=== PATIENT | female | born 1975 | race Caucasian/White ===

== ENCOUNTER 2019-05-06 05:36 | Day surgery (SDC) | payer OTHER ==
[~2019-05-06 05:36] MED LIST: Buffered Lidocaine 1% SYRIN* 1 ML/SYRINGE INTRADERM ONE
[2019-05-06] MEDS ORDERED: Lactated Ringers 1000 ML Bag* 1,000 ML IV SCH (06:00)
[2019-05-06] MEDS ORDERED: ceFAZolin 2 GM in NS PREMIX(*) 2 GM/100 ML BAG IVPB ONE (06:36)
[2019-05-06] MEDS ORDERED: Midazolam* 1 MG/ML 2 ML VIAL (2 MG) ONE (07:30)
[2019-05-06] MEDS ORDERED: Remifentanil* 2 MG VIAL ONE (07:30)
[2019-05-06] MEDS ORDERED: Propofol* 10 MG/ML 20 ML BTL ONE (07:30)
[2019-05-06] MEDS ORDERED: Propofol* 500 MG/50 ML BTL ONE (07:30)
[2019-05-06] MEDS ORDERED: Lidocaine 2% PF * 5 ML VIAL ONE ×2 (07:30→07:31)
[2019-05-06] MEDS ORDERED: Bupivacaine 0.5%* 50 ML MDV VIAL ONE (07:49)
[2019-05-06] MEDS ORDERED: Acetaminophen TAB* 325 MG PO PRN (08:43)
[2019-05-06] MEDS ORDERED: oxyCODONE TAB* 5 MG TAB PO PRN (08:43)
[2019-05-06] MEDS ORDERED: DiMENhydriNATE IV* 50 MG/ML VIAL IV PUSH PRN (08:43)
[2019-05-06] MEDS ORDERED: Naloxone* 0.4 MG/ML 1 ML VIAL IV PRN (08:43)
[2019-05-06] MEDS ORDERED: fentaNYL* 50 MCG/ML 2 ML VIAL (100 MCG VIAL) IV PRN (08:43)
[2019-05-06] MEDS ORDERED: Ketorolac INJ* 30 MG/ML 1 ML VIAL ONE (08:49)
[2019-05-06] MEDS ORDERED: Metoclopramide IV* 5 MG/ML 2 ML VIAL ONE (08:49)
[2019-05-06] MEDS ORDERED: Ondansetron INJ* 2 MG/ML VIAL ONE (08:49)
[2019-05-06] MEDS ORDERED: Dexamethasone IV* 4 MG/ML 1 ML (4 MG) ONE (08:49)
--- NOTE | 2019-05-06 09:03 | OP ---
Operative Report - Blank - Operative Report Date of Operation: 05/06/19 Note: PATIENT: Summer Thomas DATE OF : 1975 DATE OF SURGERY: 05/06/2019 SURGEON: Manuel Yarbrough MD [employer] MANAGER: DAHIANA Branch, whos assistance was necessary for positioning, retraction, help with instrumentation, and closure. ANESTHESIOLOGIST: Dr. To PREOPERATIVE DIAGNOSIS: Right foot hallux valgus deformity POSTOPERATIVE DIAGNOSIS: Right foot hallux valgus deformity OPERATION: Right foot hallux valgus correction with distal soft tissue procedure , medial eminence resection, and proximal suture button fixation. ANESTHESIA: General IMPLANTS: Arthrex mini tightrope TOURNIQUET TIME: Less than one hour with a well-padded thigh tourniquet at 250mmHg SPECIMENS: None ESTIMATED BLOOD LOSS: Minimal COMPLICATIONS: none STATUS: Stable from the operating room to the recovery room and then home. INDICATIONS FOR PROCEDURE: Summer has had persistent pain from her bunion. Both operative and non- operative treatment alternatives were reviewed. Further, the nature and risks of surgery were reviewed in careful detail, in the office as well as the pre- operative holding area. Our discussions regarding the risks of surgery included , but were not limited to, infection, wound problems, nerve injury, neuroma, RSD , persistent symptoms, blood clot, recurrence of the hallux valgus deformity, hallux varus deformity, imperfect reduction, metatarsal fracture, need for further surgery, failure of the surgery, and even the remote chance of catastrophic complication, including loss of limb. DESCRIPTION OF PROCEDURE: The patient was seen in the preoperative holding unit and informed written consent was obtained. The appropriate extremity was marked. The patient was then brought to the operating room and carefully positioned on the operating room table. Anesthesia was induced. All bony prominences were padded with great care. A chlorhexidine based pre-scrub was performed followed by a chloraprep prep and drape in standard sterile fashion. A surgical safety pause was then conducted in which we confirmed the appropriate patient, extremity, planned procedure, availability of equipment, indication and administration of prophylactic antibiotics, and DVT prophylaxis in the form of a compression boot on the non-surgical extremity. I began with Esmarch exsanguination of the limb and inflated the tourniquet. An approximately 3cm longitudinal dorsal incision was made in the first webspace. Blunt dissection was utilized to expose the structures of the lateral first MTP joint. With a scalpel I then sharply released the adductor tendon, intermetatarsal ligament, metatarsal-sesamoid ligament, and lateral joint capsule. After this, the hallux came readily over into varus with minimal pressure. I then made an approximately 3cm longitudinal incision over the medial aspect of the first MTP joint, centered at the first MTP joint. Dissection was carried down to the capsular layer. The dorsomedial cutaneous nerve was protected throughout. The capsule was opened in line with the skin incision. I then used an oscillating saw to perform an exostectomy of the medial eminence of the first MTP head flush with the metaphyseal flare proximally. I started the osteotomy 1mm medial to the sagittal sulcus. The dorsomedial prominence was then contoured with a rongeur. I then simulated an imbrication of the capsule, which provided excellent visual correction of the hallux valgus deformity and intermetatarsal angle. I used fluoroscopy to confirm this and that the sesamoids were appropriately positioned under the first metatarsal head. As such, I then formally imbricated and repaired the medial first MTP joint capsule utilizing several advancing horizontal mattress sutures with #1 Vicryl. I then made an approximately 1 cm incision at the lateral border of the second metatarsal. The lateral cortex of the second metatarsal was exposed. The 1.1mm guidewire from the Arthrex mini tightrope set was passed from the lateral second metatarsal, through the second metatarsal, and through the first metatarsal to exit medially. I felt four cortices while advancing the guidewire. Then, by pulling the guidewire out medially, I shuttled a passing suture through the second and first metatarsals. I then looped the suture of the Arthrex mini tightrope through the passing suture and pulled this out laterally through the second metatarsal. This acted to shuttle the mini tightrope through the first and second metatarsals. The buttons were placed flush on the medial aspect of the first metatarsal and lateral aspect of the second metatarsal, and the suture was tied over the button laterally at the second metatarsal. Fluoroscopy was used to confirm that this maintained my intermetatarsal correction. Final fluoroscopic images were then obtained. The wounds were copiously irrigated and meticulously closed in layers utilizing 3-0 Monocryl and 3-0 nylon. A sterile dressing was then applied, along with a bunion bolster. The patient was then awakened from anesthesia and transferred to the recovery room in stable condition. There were no complications. All needle and sponge counts were correct at the end of the case. ATTESTATION: I attest I was present and scrubbed and performed the critical portions of the procedure myself. POSTOPERATIVE PLAN: The patient will remain heel weightbearing in a postop shoe for anticipated duration of 6 weeks. Followup will be in 2 weeks for likely suture removal, Steri-Strip application, and reapplication of the bunion bolster.
[2019-05-06] MEDS ORDERED: oxyCODONE TAB* 5 MG TAB ONE (10:37)
[2019-05-06 11:35] VITALS: BP 126/81
== END 2019-05-06 11:36 | disposition home or self-care (01) ==
LOC: OR 05:36
PROVIDERS: ATTEND Orthopaedic Surgery
DX: M20.11 Hallux valgus (acquired), right foot (principal); Z87.891 Personal history of nicotine dependence; Z85.43 Personal history of malignant neoplasm of ovary; K21.9 Gastro-esophageal reflux disease without esophagitis; Z87.442 Personal history of urinary calculi
CPT/HCPCS: 76000; A9270-GY; C1713; J0690; J1100; J1885; J2250; J2405; J2704; J2765; J3490

== ENCOUNTER 2019-08-21 09:09 | Day surgery (SDC) | payer OTHER ==
[~2019-08-21 09:09] MED LIST changes: +Lactated Ringers 1000 ML Bag* 1,000 ML IV SCH
[2019-08-21] MEDS ORDERED: ceFAZolin 2 GM PREMIX in ORs 2 GM/50 ML BAG ONE (09:32)
[2019-08-21] MEDS ORDERED: Bupivacaine 0.5%* 50 ML MDV VIAL ONE (11:38)
[2019-08-21] MEDS ORDERED: fentaNYL* 50 MCG/ML 2 ML VIAL (100 MCG VIAL) ONE (12:24)
[2019-08-21] MEDS ORDERED: Midazolam* 1 MG/ML 2 ML VIAL (2 MG) ONE (12:25)
[2019-08-21] MEDS ORDERED: Lidocaine 2% PF * 5 ML VIAL ONE (13:17)
[2019-08-21] MEDS ORDERED: Dexamethasone IV* 4 MG/ML 1 ML (4 MG) ONE (13:17)
[2019-08-21] MEDS ORDERED: Ondansetron INJ* 2 MG/ML VIAL ONE (13:17)
[2019-08-21] MEDS ORDERED: Propofol* 10 MG/ML 20 ML BTL ONE (13:17)
[2019-08-21] MEDS ORDERED: oxyCODONE TAB* 5 MG TAB ONE (13:52)
[2019-08-21 14:45] VITALS: BP 105/59
--- NOTE | 2019-08-21 15:25 | OP ---
Operative Report - Blank - Operative Report Date of Operation: 08/21/19 Note: PATIENT: Summer Thomas DATE OF : 1975 DATE OF SURGERY: 08/21/2019 SURGEON: Manuel Yarbrough MD REPAIR SERVICER: DAHIANA Branch, whos assistance was necessary for positioning, retraction, help with instrumentation, and closure. ANESTHESIOLOGIST: Dr. Gee PREOPERATIVE DIAGNOSIS: Left foot hallux valgus deformity POSTOPERATIVE DIAGNOSIS: Left foot hallux valgus deformity OPERATION: Left foot hallux valgus correction with distal soft tissue procedure , medial eminence resection, and proximal suture button fixation. ANESTHESIA: General IMPLANTS: Arthrex mini tightrope TOURNIQUET TIME: Less than one hour with a well-padded thigh tourniquet at 250 mmHg. SPECIMENS: None ESTIMATED BLOOD LOSS: Minimal COMPLICATIONS: none STATUS: Stable from the operating room to the recovery room and then home. INDICATIONS FOR PROCEDURE: Summer has a painful left bunion deformity. She had a prior right bunion correction and did well with this, and elected to move forward with the same surgery on the left side. Both operative and non-operative treatment alternatives were reviewed. Further, the nature and risks of surgery were reviewed in careful detail, in the office as well as the pre-operative holding area. Our discussions regarding the risks of surgery included, but were not limited to, infection, wound problems, nerve injury, neuroma, RSD, persistent symptoms, blood clot, recurrence of the hallux valgus deformity, hallux varus deformity, imperfect reduction, metatarsal fracture, need for further surgery, failure of the surgery, and even the remote chance of catastrophic complication. DESCRIPTION OF PROCEDURE: The patient was seen in the preoperative holding unit and informed written consent was obtained. The appropriate extremity was marked. The patient was then brought to the operating room and carefully positioned on the operating room table. Anesthesia was induced. All bony prominences were padded with great care. A chlorhexidine based pre-scrub was performed followed by a chloraprep prep and drape in standard sterile fashion. A surgical safety pause was then conducted in which we confirmed the appropriate patient, extremity, planned procedure, availability of equipment, indication and administration of prophylactic antibiotics, and DVT prophylaxis in the form of a compression boot on the non-surgical extremity. I began with Esmarch exsanguination of the limb and inflated the tourniquet. An approximately 3cm longitudinal dorsal incision was made in the first webspace. Blunt dissection was utilized to expose the structures of the lateral first MTP joint. With a scalpel I then sharply released the adductor tendon, intermetatarsal ligament, metatarsal-sesamoid ligament, and lateral joint capsule. After this, the hallux came readily over into varus with minimal pressure. I then made an approximately 3cm longitudinal incision over the medial aspect of the first MTP joint, centered at the first MTP joint. Dissection was carried down to the capsular layer. The dorsomedial cutaneous nerve was protected throughout. The capsule was opened in line with the skin incision. I then used an oscillating saw to perform an exostectomy of the medial eminence of the first MTP head flush with the metaphyseal flare proximally. I started the osteotomy 1mm medial to the sagittal sulcus. The dorsomedial prominence was then contoured with a rongeur. I then simulated an imbrication of the capsule, which provided excellent visual correction of the hallux valgus deformity and intermetatarsal angle. I used fluoroscopy to confirm this and that the sesamoids were appropriately positioned under the first metatarsal head. As such, I then formally imbricated and repaired the medial first MTP joint capsule utilizing several advancing horizontal mattress sutures with 0 Vicryl. I then made an approximately 1 cm incision at the lateral border of the second metatarsal. The lateral cortex of the second metatarsal was exposed. The 1.1mm guidewire from the Arthrex mini tightrope set was passed from the lateral second metatarsal, through the second metatarsal, and through the first metatarsal to exit medially. I felt four cortices while advancing the guidewire. Then, by pulling the guidewire out medially, I shuttled a passing suture through the second and first metatarsals. I then looped the suture of the Arthrex mini tightrope through the passing suture and pulled this out laterally through the second metatarsal. This acted to shuttle the mini tightrope through the first and second metatarsals. The buttons were placed flush on the medial aspect of the first metatarsal and lateral aspect of the second metatarsal, and the suture was tied over the button laterally at the second metatarsal. Fluoroscopy was used to confirm that this maintained my intermetatarsal correction. Final fluoroscopic images were then obtained. The wounds were copiously irrigated and meticulously closed in layers utilizing 3-0 Monocryl and 3-0 nylon. A sterile dressing was then applied, along with a bunion bolster. The patient was then awakened from anesthesia and transferred to the recovery room in stable condition. There were no complications. All needle and sponge counts were correct at the end of the case. ATTESTATION: I attest I was present and scrubbed and performed the critical portions of the procedure myself. POSTOPERATIVE PLAN: The patient will remain heel weightbearing in a postop shoe for anticipated duration of 6 weeks. Followup will be in 2 weeks for likely suture removal, Steri-Strip application, and reapplication of the bunion bolster.
== END 2019-08-21 14:30 | disposition home or self-care (01) ==
LOC: OR 09:09
PROVIDERS: ATTEND Orthopaedic Surgery
DX: M20.12 Hallux valgus (acquired), left foot (principal); K21.9 Gastro-esophageal reflux disease without esophagitis; F41.8 Other specified anxiety disorders; Z85.43 Personal history of malignant neoplasm of ovary
CPT/HCPCS: 76000; A9270-GY; C1713; J0690; J1100; J2250; J2405; J2704; J3010; J3490